=== PATIENT | male | born 1935 | race Caucasian/White ===

== ENCOUNTER → 2017-11-18 | Outpatient (CLI) | payer MEDICARE, OTHER ==
[~2017-11-18] MED LIST: ATIVAN0.5 MG PO; B12; BENADRYL25 MG PO; CARAFATE 1 GM TA1 GM PO; COLACE100 MG PO; FLOMAX0.4 MG PO; FLONASE 0.05%50 MCG NASAL; GI Cocktail PO; HYDROCHLOROTH12.5 M1 PO; HYDROCODONE-APA1 TA1 PO; HYDROXYZINE HCL25 M1 PO; KLOR-CON 1010 MEQ PO; LYRICA 75 MG CA75 MG PO; NORVASC10 MG PO; PERCOCET PO; RULOX SUSPENSI355 ML; SYNTHROID50 MCG PO; TYLENOL325 MG PO; XARELTO10 MG PO; ZOCOR20 MG PO
== END ==
LOC: M.MRI 06:49
DX: S83.281A Other tear of lateral meniscus, current injury, right knee, initial encounter (principal); M17.11 Unilateral primary osteoarthritis, right knee; G89.29 Other chronic pain; X58.XXXA Exposure to other specified factors, initial encounter; Y93.89 Activity, other specified; Y92.89 Other specified places as the place of occurrence of the external cause; Y99.8 Other external cause status

== ENCOUNTER 2017-12-13 06:15 | Inpatient (IN) | payer MEDICARE, OTHER ==
[~2017-12-13] VITALS: Ht 175.3 cm; Wt 77.1 kg
[~2017-12-13 06:15] MED LIST changes: -COLACE100 MG PO; -PERCOCET PO; -TYLENOL325 MG PO; -XARELTO10 MG PO
[2017-12-13 08:51] VITALS: BP 148/60
[2017-12-13] MEDS ORDERED: TYLENOL325 MG PO (08:53)
[2017-12-13 13:30] VITALS: BP 126/65
[2017-12-13 16:49] VITALS: BP 137/58
[2017-12-13 21:25] VITALS: BP 123/50
[2017-12-14] VITALS (7 sets, daily range): BP systolic 112–162; BP diastolic 52–80
[2017-12-14 04:18] LABS: HEMATOCRIT 38.2 % (42.0-52.0)
[2017-12-15 03:55] VITALS: BP 170/76
[2017-12-15 04:42] LABS: HEMATOCRIT 41.4 % (42.0-52.0)
[2017-12-15 08:00] VITALS: BP 153/70
[2017-12-15 12:13] VITALS: BP 139/80
[2017-12-15] MEDS ORDERED: PERCOCET PO (16:53)
[2017-12-15] MEDS ORDERED: XARELTO10 MG PO (16:54)
[2017-12-15 16:55] VITALS: BP 139/80
[2017-12-15] MEDS ORDERED: COLACE100 MG PO (16:55)
--- NOTE | 2018-01-17 11:47 | OP ---
[facility] [address] [place] [address] OPERATIVE REPORT Name: PHANI POWELL Room: [address] IN [facility]#: [id number] Admission: 12/13/17 Attend Phys: Torri Lay Discharge: 12/15/17 Date of : 37 Report #: [id number] THIS REPORT FOR: //name// CC: Evan Payton DATE OF SERVICE: 12/13/2017 PREOPERATIVE DIAGNOSIS: Right knee osteoarthritis. POSTOPERATIVE DIAGNOSIS: Right knee osteoarthritis. PROCEDURE: Right total knee arthroplasty. SURGEON: Claude Interiano II, DO [employer] MACHINE OPERATOR: BETTY Bush ANESTHESIA: General endotracheal. ESTIMATED BLOOD LOSS: 50 mL. ANTIBIOTICS: Ancef preoperatively. DRAINS: Medium Hemovac. COMPLICATIONS: None. CONDITION: The patient stable to recovery room. IMPLANTS: Listed in the operative record and progress note. BRIEF HISTORY: The patient was seen in the preoperative area. Preoperative H and P was performed. Site was marked and questions were answered. Risks and benefits were discussed with the patient in detail about surgery. The patient wants to proceed and ____ all risks. OPERATIVE PROCEDURE: The patient was taken to the operative suite, placed supine on the operating table and given appropriate anesthesia. The patient had a well-padded tourniquet applied to the upper thigh, which was inflated to 300 mmHg after gravity exsanguination. The operative knee was sterilely prepped and draped. Surgery began by midline incision. This was carried down through subcutaneous tissues. A medial parapatellar arthrotomy was performed and was carried down to bone. The patella was then everted and excess soft tissue was removed from around the femur. The femoral cutting block was then applied, [address] [address] OPERATIVE REPORT Name: PHANI POWELL Room: [address]#: [id number] Admission: 12/13/17 Attend Phys: Torri Lay Discharge: 12/15/17 Date of : 37 Report #: [id number] checked with a drop tha for rotational alignment, pinned in appropriate position and appropriate cuts were made. A 4-in-1 cutting block was then applied, checked for rotation alignment, pinned in appropriate position and appropriate cuts were made. Tibia was then exposed. The excess meniscus was removed. Retractors were placed along the collateral ligaments. Tibial cutting block was then applied, pinned in appropriate position, checked with a drop tha for rotational alignment and slope and appropriate cut was made. Tibial bone was removed. Tibial base plate was then applied, checked for rotational alignment with the drop tha and pinned in appropriate position. The femur was then applied and a box cut was reamed. This was then trialed with appropriate spacer, which showed excellent fit and fill and excellent stability throughout all range of motion. The patella was reamed in appropriate fashion and sized to appropriate size. Three peg holes were drilled and it was then trialed and showed excellent flexion and extension and excellent tracking of the patella within the groove. These trials were then removed. Tibia was punched in appropriate fashion. Bone was then cleaned with Pulsavac irrigation and cement was mixed and applied to the final implants. These were malleted into position and held with the knee in extension and compressed to allow the cement to cure. After it cured, excess was removed utilizing a Questa and osteotome. The wound was then copiously irrigated and the final spacer was then malleted in position. Tourniquet was deflated. Hemostasis was maintained with electrocautery. Pain cocktail was injected. PRP gel was sprayed throughout the internal aspects of the knee. Medium Hemovac drain was then applied. The capsule was closed with #2 FiberWire and 1 Vicryl in [id number] fashion. The skin was closed with 2-0 Vicryl and running 3-0 Monocryl. Dermabond dressing was applied. Urban wrap and PolarCare applied. The patient transferred to the recovery room in stable condition. Counts were correct throughout the procedure. <ELECTRONICALLY SIGNED> By: Claude Interiano II, DO 01/17/18 [id number] Interiano II, DO /nt
== END 2017-12-15 17:30 | disposition home health service (06) | DRG 470 ==
LOC: M.PRE 06:15 → M.TBA 08:25 → M.ORTHSURG 08:25 → M.PRE 08:48 → M.ORTHSURG 13:26
PROVIDERS: Orthopaedic Surgery; ADMIT Internal Medicine
PROC: 0SRC0J9 Replacement of Right Knee Joint with Synthetic Substitute, Cemented, Open Approach (ICD-10-PCS; principal; 2017-12-13)
DX: M17.11 Unilateral primary osteoarthritis, right knee (principal); I10 Essential (primary) hypertension; E78.5 Hyperlipidemia, unspecified; E03.9 Hypothyroidism, unspecified; Z90.49 Acquired absence of other specified parts of digestive tract; Z85.46 Personal history of malignant neoplasm of prostate; Z98.52 Vasectomy status; Z88.8 Allergy status to other drugs, medicaments and biological substances; Z79.899 Other long term (current) drug therapy

== ENCOUNTER → 2018-01-24 | Outpatient (CLI) | payer MEDICARE, OTHER ==
[~2018-01-24] MED LIST changes: +COLACE100 MG PO; +PERCOCET PO; +TYLENOL325 MG PO; +XARELTO10 MG PO
== END ==
LOC: M.RAD 09:19
DX: M25.461 Effusion, right knee (principal); M17.11 Unilateral primary osteoarthritis, right knee; Z96.651 Presence of right artificial knee joint

== ENCOUNTER → 2018-02-14 | Outpatient (CLI) | payer MEDICARE, OTHER | LOC: M.MRI 16:53 | DX: M47.816 Spondylosis without myelopathy or radiculopathy, lumbar region (principal); M48.061 Spinal stenosis, lumbar region without neurogenic claudication; M51.26 Other intervertebral disc displacement, lumbar region; I10 Essential (primary) hypertension; E03.9 Hypothyroidism, unspecified ==

== ENCOUNTER → 2019-01-01 | Outpatient (CLI) | payer MEDICARE, OTHER | LOC: M.ULTRA 09:55 | DX: N63.20 Unspecified lump in the left breast, unspecified quadrant (principal) ==

== ENCOUNTER → 2020-10-13 | Outpatient (CLI) | payer MEDICARE, OTHER | LOC: M.RAD 15:18 | PROVIDERS: ATTEND Orthopaedic Surgery | DX: M17.12 Unilateral primary osteoarthritis, left knee (principal); M25.762 Osteophyte, left knee; M25.462 Effusion, left knee ==

== ENCOUNTER → 2020-10-28 | Outpatient (CLI) | payer MEDICARE, OTHER | LOC: M.RAD 13:24 | PROVIDERS: ATTEND Orthopaedic Surgery | DX: M25.551 Pain in right hip (principal); M25.552 Pain in left hip ==

== ENCOUNTER 2021-03-10 10:03 | Emergency (ER) | payer MEDICARE, OTHER ==
[~2021-03-10] VITALS: Ht 175.3 cm; Wt 77.1 kg
[2021-03-10 10:32] LABS: ABSOLUTE EOSINOPHILS 0.1 thou/uL (0.0-0.7); ABSOLUTE LYMPHOCYTES 2.6 thou/uL (0.8-5.3); ABSOLUTE MONOCYTES 0.6 thou/uL (0.0-1.2); ABSOLUTE NEUTROPHILS 3.4 thou/uL (1.6-8.1); BASOPHILS 0.6 %; EOSINOPHILS 1.7 %; HEMATOCRIT 41.6 % (42.0-52.0); HEMOGLOBIN 13.9 gm/dL (14.0-18.0); LYMPHOCYTES 38.9 %; MCH 29.3 pg (26.0-34.0); MCHC 33.5 g/dL (28.0-37.0); MCV 87.6 fL (80.0-100.0); MONOCYTES 8.3 %; NUCLEATED RBCS 0 /100WBC; PLATELET COUNT* 193 thou/uL (150-400); POLYS 50.5 %; RBC 4.75 mil/uL (4.50-6.00); RDW-CV 13.1 % (10.5-14.5); WBC 6.8 thou/uL (4.0-11.0)
[2021-03-10 10:36] LABS: CALCIUM 8.8 mg/dL (8.5-10.1)
[2021-03-10 10:41] LABS: TOTAL BILIRUBIN 0.5 mg/dL (<0.1-1.0); TOTAL PROTEIN 6.9 g/dL (6.4-8.2)
[2021-03-10 11:02] VITALS: BP 154/55
== END 2021-03-10 11:05 | disposition short-term general hospital (02) ==
LOC: M.ERS 10:03
PROVIDERS: Family Medicine
DX: S61.412A Laceration without foreign body of left hand, initial encounter (principal); I10 Essential (primary) hypertension; E03.9 Hypothyroidism, unspecified; E78.5 Hyperlipidemia, unspecified; Z90.49 Acquired absence of other specified parts of digestive tract; Z85.46 Personal history of malignant neoplasm of prostate; Z79.899 Other long term (current) drug therapy; Z88.8 Allergy status to other drugs, medicaments and biological substances; W29.8XXA Contact with other powered hand tools and household machinery, initial encounter; Y93.89 Activity, other specified; Y92.89 Other specified places as the place of occurrence of the external cause; Y99.8 Other external cause status